=== PATIENT | female | born 1940 | race Caucasian/White ===

== ENCOUNTER 2024-03-09 13:30 | Outpatient (RCR) | payer MEDICARE, SELFPAY ==
--- NOTE | 2024-01-20 12:03 | HP.PTEVAL ---
Patient's Visit Information Visit Information Visit Information: ALCIDES PALACIOS is a 83 year old F referred to Physical Therapy by Dr. Chica Love DO with a diagnosis of L sciatica. Date of Evaluation: 01/20/24 Physical Therapist: Colt Marin, DPT, OCS, CSCS Visit Plan Frequency: 2x /Week Duration: 4-6 Weeks Plan: 2x/week for 3-6 starting in water for LB extension ROM, HS stretches, postural, core and LE strength to I and progression of HEP which is [employer] prop 10x 2x/day at [facility]. Subjective Subjective: Has sciatica for the last year. Pain started L side last November for no apparent reason. needed R TKA in January. Had therapy at [facility] last year. Has MRI last year. Went to pain management and found tender points. MRI showed L45 narrowing. This is likely what is causing her pain in L leg. Aug 22 was R TKA, horrendous pain after that. HOPS therapy on back did not help. Tried exercises for LB late last year but did not help much. That was standing SB stretches, PPT, leg raises and ITB stretch. Had spinal injections L45 which did not help, that was in August. walking is not a problem. medications help everything. Sleep is not a problem with pills but needs them to sleep. Retired. Basic ADLs: doing OK Hobbies: grandkids: LBP may bother her at times or keep her from running around Exercises: None Has walker and cane and uses them especially in am to help with pain which gets better as day goes on. Pain L LB and leg: Pain Intensity (Out of 10): 2 Pain Intensity Range: 0 and 8 Comment: with meds 80% better. Sitting is worse, Sore right now. Objective Objective: Walks with cane adn without AD I into PT slow with very little hip extension but I. Transfers I but slow rolling and to sit from bed. LB AROM ext max limited, SB mod limited, flexion mod limited, poor core strength at 3/5. LE AROM WFL but hip extension which is 3 degrees B and weak 3/5, abd and flexion 3+. knee flex ext 4- and ankles 4/5. HS mod tight. quad min tight B. reflexes 2/3 patella and achilles Sensation WNL to gross light touch. SLR and slump are -. Balance/Special Test Scores Oswestry Low Back Score: 11 Goals Goal 1:: back extension and hip extension without pain and only min limited Goal Time Frame: 4-6 Weeks Goal 2:: I appropriate aquatic and home based HEP to manage symptoms Goal Time Frame: 4-6 Weeks Goal 3:: Pt feel 75% better in overall L back and leg pain to 2/10 at worst Goal Time Frame: 4-6 Weeks Goal 4:: 5 or better on oswestry Goal Time Frame: 4-6 Weeks Rehabilitation Potential Physical Therapy Diagnosis: Painn and weakness limiting comfortable function Rehabilitation Potential: Fair Anticipated Interventions Patient/Client Instruction: Educate patient on: Condition and Plan of Care For the Purpose of:: To decrease pain, To increase ROM, To improve nutrient delivery to tissue and To improve muscle performance and motor function Therapeutic Exercise to Include: Strength training, Flexibilty training, Gait and locomotor training, In an aquatic setting, Passive ROM and Active ROM For the Purpose of:: To decrease pain, To increase ROM, To improve nutrient delivery to tissue, To improve muscle performance and motor function, To increase tolerance to activity/condition/position, To improve ability of physical actions for home/community/work/leisure and To improve gait and locomotor functions Text: Thank you for the opportunity to evaluate your patient. For Medicare and Medicare HMO plans, please review the plan of care and approve it. It will need to be FAXED BACK to us at [phone] for Medicare purposes. For Medicare only, by signing this I certify the plan of care. Please let me know if there are questions or concerns regarding this plan of care. Physician Signature: Date:
--- NOTE | 2024-03-09 14:04 | HP.PTEVAL ---
Patient's Visit Information Visit Information Visit Information: ALCIDES PALACIOS is a 83 year old F referred to Physical Therapy by Dr. Chica Love DO with a diagnosis of L sciatica. Date of Evaluation: 01/20/24 Physical Therapist: Colt Marin, DPT, OCS, CSCS Visit Plan Frequency: 2x /Week Duration: 4-6 Weeks Plan: d/c, pt to continue in pool I. Subjective Subjective: Has sciatica for the last year. Pain started L side last November for no apparent reason. needed R TKA in January. Had therapy at [facility] last year. Has MRI last year. Went to pain management and found tender points. MRI showed L45 narrowing. This is likely what is causing her pain in L leg. Aug 22 was R TKA, horrendous pain after that. [facility] therapy on back did not help. Tried exercises for LB late last year but did not help much. That was standing SB stretches, PPT, leg raises and ITB stretch. Had spinal injections L45 which did not help, that was in August. walking is not a problem. medications help everything. Sleep is not a problem with pills but needs them to sleep. Retired. Basic ADLs: doing OK Hobbies: grandkids: LBP may bother her at times or keep her from running around Exercises: None Has walker and cane and uses them especially in am to help with pain which gets better as day goes on. Pain L LB and leg: Pain Intensity (Out of 10): 8 Pain Intensity Range: 0 and 8 Comment: 5-6/10 without meds Objective Objective: Walks with cane adn without AD I into PT slow with very little hip extension but I. Transfers I but slow rolling and to sit from bed. LB AROM ext max limited, SB mod limited, flexion mod limited, poor core strength at 3/5. LE AROM WFL but hip extension which is 3 degrees B and weak 3/5, abd and flexion 3+. knee flex ext 4- and ankles 4/5. HS mod tight. quad min tight B. reflexes 2/3 patella and achilles Sensation WNL to gross light touch. SLR and slump are -. Balance/Special Test Scores Oswestry Low Back Score: 12 Goals Goal 1:: back extension and hip extension without pain and only min limited Goal Time Frame: 4-6 Weeks Goal 2:: I appropriate aquatic and home based HEP to manage symptoms Goal Time Frame: 4-6 Weeks Goal 3:: Pt feel 75% better in overall L back and leg pain to 2/10 at worst Goal Time Frame: 4-6 Weeks Goal 4:: 5 or better on oswestry Goal Time Frame: 4-6 Weeks Rehabilitation Potential Physical Therapy Diagnosis: Painn and weakness limiting comfortable function Rehabilitation Potential: Fair Anticipated Interventions Patient/Client Instruction: Educate patient on: Condition and Plan of Care For the Purpose of:: To decrease pain, To increase ROM, To improve nutrient delivery to tissue and To improve muscle performance and motor function Therapeutic Exercise to Include: Strength training, Flexibilty training, Gait and locomotor training, In an aquatic setting, Passive ROM and Active ROM For the Purpose of:: To decrease pain, To increase ROM, To improve nutrient delivery to tissue, To improve muscle performance and motor function, To increase tolerance to activity/condition/position, To improve ability of physical actions for home/community/work/leisure and To improve gait and locomotor functions Text: Thank you for the opportunity to evaluate your patient. For Medicare and Medicare HMO plans, please review the plan of care and approve it. It will need to be FAXED BACK to us at [phone] for Medicare purposes. For Medicare only, by signing this I certify the plan of care. Please let me know if there are questions or concerns regarding this plan of care. Physician Signature: Date:
--- NOTE | 2024-03-21 11:28 | HP.PTDCSUM ---
Discharge Summary D/C summary: It has been my pleasure to treat ALCIDES PALACIOS referred by Dr. Chica Love DO, with the diagnosis of L sciatica for a total of 14 visit(s). Discharge Date: 03/09/24 Please see the following information for a summary of their discharge status. Subjective Subjective: Doing very well and has joined adn plans to continue on her own in the poolk via membership. Feels stronger adn balance is better. No longer needing cane. Went to indoor water park and walked alot and did well. pain level is 8/10 but tylenol helps. Will see Pain management on Wednesday. Activities: Normal , just painful. Planted lettuce and transplanted perrenials. Pain L LB and leg: Pain Intensity (Out of 10): 8 Overall Improvement % Improvement: 75 Objective Objective/Function: Back extension still very limited ext but not painful, flexion is good. Walking well and I without AD. Stiff in pelvis. Goals Goal 1:: back extension and hip extension without pain and only min limited Goal Progress: Progressing Goal 2:: I appropriate aquatic and home based HEP to manage symptoms Goal Progress: Goal Met Goal 3:: Pt feel 75% better in overall L back and leg pain to 2/10 at worst Goal Progress: 75% but still 8 Goal 4:: 5 or better on oswestry Goal Progress: Progressing Plan Plan: d/c, pt to continue in pool I. D/C Information Discharge Comments: Pt to continue in pool I and with HEP d/c sentence: If there are questions or concerns regarding this patient's physical therapy, please feel free to call me at [phone]. Thank you for the referral of this patient. Sincerely, Colt Marin, DPT, OCS, CSCS Balance/Gait/Functional tests Balance/Special Test Scores Oswestry Low Back Score: 12 Improvement % Improvement: 75
== END 2024-03-09 19:00 | disposition home or self-care (01) ==
LOC: PT 13:30
PROVIDERS: PCP Family Medicine; Referring Provider Family Medicine; Visit Provider Family Medicine
DX: M54.32 Sciatica, left side (principal)
CPT/HCPCS: 97113; 97161; 97164; 97530

== ENCOUNTER 2024-05-19 11:30 | Outpatient (RCR) | payer MEDICARE, SELFPAY ==
--- NOTE | 2024-03-21 11:58 | HP.PTEVAL_ITS ---
Patient's Visit Information Visit Information Visit Information: ALCIDES PALACIOS is a 83 year old F referred to Physical Therapy by PHONEIX ZARAGOZA with a diagnosis of piriformis syndrome L. Date of Evaluation: 03/21/24 Physical Therapist: Colt Marin, DPT, OCS, CSCS Visit Plan Frequency: 2x /Week Duration: 4-6 Weeks Plan: 2x/week for 4 weeks for 1. Mh and DTR to L glut and piriformis area. 2. stretch L psoas 3. strength B hips to HEP Pt to get back in pool I once allowed and will seek acupuncture elsewhere as we do not have that available at our clinic. Dry needling may be an option if current POC fails. Subjective Subjective: Had a mole removed on arm and has been unable to get in water until another week. Getting weak but did not take any pills. 7/[address] in car, better with walking. L posterior hip and down lateral leg. Will get back in water when allowed. Saw pain management and they said they want an injection of cortisone and wants gait checked at PT and given an order. Changed meds to tylenol and felt better. Sitting feels worse. A little walking feels better if she does not over do it. [place] a lot better after water ex last Wednesday. Doctor also wants to try acupuncture/dry needling according to patient and prescirption. Pain L hip: Pain Intensity (Out of 10): 7 Pain Intensity Range: 3 and 7 Objective Objective: L limp and antalgia avoiding L hip ext at end of stance but I gait. AROM L hip 3 L ext adn 5 R, PROM 5 L and 10 R hip ext, others WNL at the hips and knees. Tender to palpation L glut and piriformis area maximally. reflexes 2/3 patella and achilles sensation LE WNL ot gross light touch. Trasfers chair and bed I strength hips ext 3, abd 3, flexion 3+ all B, knees are 4- ext and flexion, hip extnension is painful Balance/Special Test Scores Lower Extremity Functional Score: 38 Goals Goal 1:: pain in L hip 2/10 at worst and 75% better Goal Time Frame: 2-4 Weeks Goal 2:: I apporopriate HEP to limit future problems Goal Time Frame: 2-4 Weeks Goal 3:: Walk without L antalgia Goal Time Frame: 2-4 Weeks Rehabilitation Potential Physical Therapy Diagnosis: pain in L post hip and laco of Vicki nd strength effecting gait and funciton Rehabilitation Potential: Good Anticipated Interventions Patient/Client Instruction: Educate patient on: Condition and Plan of Care For the Purpose of:: To decrease pain and To improve gait and locomotor functions Therapeutic Exercise to Include: Strength training, Flexibilty training, Passive ROM and Active ROM For the Purpose of:: To decrease pain, To increase ROM, To improve nutrient delivery to tissue, To improve muscle performance and motor function and To improve ability of physical actions for home/community/work/leisure Manual Therapy Techniques to Include: Trigger point massage, Passive ROM and Soft tissue mobilization For the Purpose of:: To decrease pain and To increase ROM Thermo therapy (hot pack): Yes For the Purpose of:: To improve nutrient delivery to tissue Text: Thank you for the opportunity to evaluate your patient. For Medicare and Medicare HMO plans, please review the plan of care and approve it. It will need to be FAXED BACK to us at [phone] for Medicare purposes. For Medicare only, by signing this I certify the plan of care. Please let me know if there are questions or concerns regarding this plan of care. Physician Signature: Date:
--- NOTE | 2024-05-19 12:33 | HP.PTDCSUM ---
Discharge Summary D/C summary: It has been my pleasure to treat ALCIDES PALACIOS referred by PHOENIX ZARAGOZA, with the diagnosis of piriformis syndrome L for a total of 11 visit(s). Discharge Date: 05/19/24 Please see the following information for a summary of their discharge status. Subjective Subjective: Much holly than previously. Feels much stronger. [place] how to manage time better adn how to change positions. [facility]ed at [facility] yesterday and did really well. Piriformis pain still requires tylenol but is fine when she takes it 3x/day. Pain level without meds is 7/10 but does not keep her from doing anything and the stretches help. Can pick blueberries an hour without a problem. Sitting too long is a problem with worsening pain. To family doctor end month, No scheudled with pain management as injection is there next session. Injection may be next step but not desired right now. Will keep in pool 2-3x/week adn keep up with stretches and gym exercises. Pain L hip: Pain Intensity (Out of 10): 0 Overall Improvement % Improvement: 80 Objective Objective/Function: Good LB ROM and LE ROM without increased pain today. Walks normal and steps normal without asymmetries or deviations other than slightly short steps B and hesitant to start when first exitting chair. Goals Goal 1:: pain in L hip 2/10 at worst and 75% better Goal Progress: Goal Met Goal 2:: I apporopriate HEP to limit future problems Goal Progress: Goal Met Goal 3:: Walk without L antalgia Goal Progress: Goal Met Plan Plan: d/c to HEP D/C Information d/c sentence: If there are questions or concerns regarding this patient's physical therapy, please feel free to call me at [phone]. Thank you for the referral of this patient. Sincerely, Colt Marin, DPT, OCS, CSCS Balance/Gait/Functional tests Balance/Special Test Scores Oswestry Low Back Score: 12 Lower Extremity Functional Score: 38 Improvement % Improvement: 80
== END 2024-05-19 19:00 | disposition home or self-care (01) ==
LOC: PT 11:30
PROVIDERS: PCP Family Medicine
DX: G57.02 Lesion of sciatic nerve, left lower limb (principal); M70.70 Other bursitis of hip, unspecified hip
CPT/HCPCS: 97110; 97140; 97161; 97530